=== PATIENT | male | born 1995 | race Caucasian/White ===

== ENCOUNTER 2016-10-27 09:21 | Emergency (ER) | payer SELFPAY ==
[2016-10-27 09:33] VITALS: BP 140/76
--- NOTE | 2016-10-27 10:45 | UC ---
Complaint Male HPI - HPI Summary HPI Summary: CONCERN ABOUT STDS PT. WAS TREATED FOR GERRY WITH ZITHROMAX ONE WEEK A GO , HIS SX IMPROVED , NO HAVING SX OF BURNING ON URINATION , URINARY DISCHARGE, NO FEVER, NO CHILLS, NO BACK PAIN - History of Current Complaint Chief Complaint: UCSTDScreening Stated Complaint: PERSONAL Time Seen by Provider: 10/27/16 10:08 Hx Obtained From: Patient Onset/Duration: Gradual Onset, Lasting Days - 2, Still Present Timing: Constant, Lasting Days - 2 Severity Initially: Moderate Severity Currently: Moderate Pain Intensity: 0 Pain Scale Used: 0-10 Numeric Location: Penis Character: Burning Aggravating Factor(s): Voiding Associated Signs And Symptoms: Positive: Dysuria, Penile Discharge. Negative: Diaphoresis, Back Pain, Fever, Hematuria, Constipation, Blood in Stool, Rectal Pain, Appetite, Nausea, Penile Swelling - Allergies/Home Medications Allergies/Adverse Reactions: Allergies Allergy/AdvReac Type Severity Reaction Status Date / Time No Known Allergies Allergy Verified 10/27/16 09:33 PMH/Surg Hx/FS Hx/Imm Hx Previously Healthy: Yes - Surgical History Surgical History: Yes Surgery Procedure, Year, and Place: HERNIA--2017 - Family History Known Family History: Positive: None - FATHER TESTICULAR CANCER, Other - testicular cancer - Social History Alcohol Use: Rare Substance Use Type: None Smoking Status (MU): Former Smoker Type: Smokeless Tobacco Amount Used/How Often: 3 CANS PER WK Length of Time of Smoking/Using Tobacco: 8 YRS When Did the Patient Quit Smoking/Using Tobacco: QUIT SMOKING 3-4 YRS AGO, CONT USE OF SMOKELESS TOBACCO Review of Systems Constitutional: Negative Skin: Negative Eyes: Negative ENT: Negative Respiratory: Negative Cardiovascular: Negative Gastrointestinal: Negative Genitourinary: Dysuria Motor: Negative Neurovascular: Negative Musculoskeletal: Negative Neurological: Negative Psychological: Negative All Other Systems Reviewed And Are Negative: Yes Physical Exam Triage Information Reviewed: Yes Appearance: Well-Appearing, No Pain Distress, Well-Nourished Vital Signs: Initial Vital Signs Temp 98.1 F 10/27/16 09:28 Pulse 56 10/27/16 09:28 Resp 18 10/27/16 09:28 BP 140/76 10/27/16 09:28 Pulse Ox 99 10/27/16 09:28 Vital Signs Reviewed: Yes Eyes: Positive: Conjunctiva Clear ENT: Positive: Normal ENT inspection, Hearing grossly normal, Pharynx normal Dental Exam: Normal Neck exam: Normal Neck: Positive: Supple Respiratory: Positive: Chest non-tender, Lungs clear, Normal breath sounds Cardiovascular Exam: Normal Cardiovascular: Positive: RRR, No Murmur, Pulses Normal Abdominal Exam: Normal Skin Exam: Normal Complaint Male Course/Dx - Differential Dx/Diagnosis Provider Diagnoses: DYSURIA. CONCERN ABOUT STDS Discharge - Discharge Plan Condition: Stable Disposition: HOME Patient Education Materials: Sexually Transmitted Diseases (ED) Referrals: No Primary Care Phys,NOPCP [Primary Care Provider] - 5 Days Additional Instructions: WILL CHECK FOR GC AND CHYLY CALL THE OFFICE IN 2 DAY FOR THE TEST RESULTS WILL START ABX TREATMENT IF ANY POSITIVE RESULTS
--- NOTE | 2016-10-28 15:01 | UC ---
Progress - Progress Note Progress Note: Patient here 3 weeks ago, tested positive for GC/Chlamydia and treated appropriately. Yesterday, returned with symptoms. Tested again through urine. Obtained results today and positive for Chlamydia. Called patient and informed of rx sent to pharmacy. 1000mg Azithromycin sent. Patient made aware and OK.
== END 2016-10-27 10:32 | disposition home or self-care (01) ==
LOC: UCCORT 09:21
DX: R30.0 Dysuria (principal); R36.9 Urethral discharge, unspecified; Z11.3 Encounter for screening for infections with a predominantly sexual mode of transmission; F17.220 Nicotine dependence, chewing tobacco, uncomplicated
CPT/HCPCS: 87491; 87591; 99211; G0463

== ENCOUNTER 2016-11-29 14:03 | Emergency (ER) | payer SELFPAY ==
[2016-11-29 14:31] VITALS: BP 152/81
--- NOTE | 2016-11-29 15:35 | UC ---
Skin Complaint HPI - History of Current Complaint Chief Complaint: UCSkin Time Seen by Provider: 11/29/16 15:25 Stated Complaint: SKIN COMPLAINT Hx Obtained From: Patient Onset/Duration: Sudden Onset - this morning. Burning rash on legs and arms and hands., Worse Since - onset. Skin Exposure Onset/Duration: Days Ago - yesterday ? Hogs weed. Timing: Constant Onset Severity: Mild Current Severity: Moderate Location: Generalized Character: Pain, Redness, Painful Aggravating: Touch Alleviating: Nothing Associated Signs & Symptoms: Positive: Rash. Negative: Nausea, Vomiting, Fever , Chills, Throat Tightening Related History: Possible Reaction to: Environmental Exposure - Hogs weed - Allergy/Home Medications Allergies/Adverse Reactions: Allergies Allergy/AdvReac Type Severity Reaction Status Date / Time No Known Allergies Allergy Verified 11/29/16 14:31 Review of Systems Skin: Rash Neurological: Headache All Other Systems Reviewed And Are Negative: Yes PMH/Surg Hx/FS Hx/Imm Hx Previously Healthy: Yes Other History Of: Negative For: HIV - Surgical History Surgical History: Yes Surgery Procedure, Year, and Place: HERNIA--2017 - Family History Known Family History: Positive: Cardiac Disease, Hypertension, Diabetes, Other - testicular cancer - Social History Occupation: Employed Full-time Lives: With Family Alcohol Use: None Substance Use Type: None Smoking Status (MU): Former Smoker Type: Smokeless Tobacco Amount Used/How Often: 3 CANS PER WK Length of Time of Smoking/Using Tobacco: 8 YRS When Did the Patient Quit Smoking/Using Tobacco: QUIT SMOKING 3-4 YRS AGO, CONT USE OF SMOKELESS TOBACCO Cessation Counseling: Patient Advised to Stop - chewing tobacco. Physical Exam Triage Information Reviewed: Yes Appearance: Well-Appearing, No Pain Distress, Well-Nourished Vital Signs: Initial Vital Signs Temp 97.0 F 11/29/16 14:26 Pulse 66 11/29/16 14:26 Resp 18 11/29/16 14:26 BP 152/81 11/29/16 14:26 Pulse Ox 100 11/29/16 14:26 Vital Signs Reviewed: Yes Eyes: Positive: Conjunctiva Clear ENT: Positive: Pharynx normal, TMs normal Neck exam: Normal Respiratory Exam: Normal Cardiovascular Exam: Normal Musculoskeletal Exam: Normal Neurological Exam: Normal Psychological Exam: Normal Skin: Positive: rashes - Blistering rash on the hands forearms and lower legs. Course/Dx - Differential Diagnoses - Skin Complaint Differential Diagnoses: Contact Dermatitis, Poison [place], Poison [place] - Diagnoses Provider Diagnoses: Contact dermatitis due to plants. Discharge - Discharge Plan Condition: Stable Disposition: HOME Prescriptions: predniSONE TAB* [Deltasone TAB*] 20 mg PO DAILY #18 tab Patient Education Materials: Contact Dermatitis (ED), Prednisone (By mouth) Referrals: No Primary Care Phys,NOPCP [Primary Care Provider] - 2 Weeks (You need a doctor to follow up on your blood pressure.)
[2016-11-29] MEDS ORDERED: methylPREDNISolone 125 MG* 2 ML VIAL IM ONE (15:38)
== END 2016-11-29 16:11 | disposition home or self-care (01) ==
LOC: UCCORT 14:03
DX: L25.5 Unspecified contact dermatitis due to plants, except food (principal); F17.220 Nicotine dependence, chewing tobacco, uncomplicated
CPT/HCPCS: 96372; 99211; G0463; J2930

== ENCOUNTER 2018-05-12 14:05 | Emergency (ER) | payer BC ==
[2018-05-12 14:46] VITALS: BP 131/70
--- NOTE | 2018-05-12 15:15 | UC ---
Neck Pain HPI - HPI Summary HPI Summary: 2 weeks of left neck pain, at insertion of paraspinals into occiput. Has used acetaminophen only with some relief. Just travelled from [place], where he has been living in the [facility] for months. No radiation of pain, is getting some diffuse headache, and has no radicular symptoms. Also concerned about lesion on his penis x several days, which he has scrubbed in the shower and swabbed with alcohol. No pain, discharge, blister, or itch. Last sexually active about 8 months ago. No hx of herpes or STI's, No urinary sx. returning to [place] in 2 weeks. - History of Current Complaint Chief Complaint: UCHeadache Stated Complaint: NECK PAIN Time Seen by Provider: 05/12/18 15:05 Hx Obtained From: Patient Onset/Duration: Gradual Onset, Lasting Weeks Pain Intensity: 2 Character: Aching Aggravating Factors: Movement Alleviating Factors: OTC Meds Associated Signs & Symptoms: Positive: Headache - Risk Factors Meningitis Risk Factors: Negative - Allergies/Home Medications Allergies/Adverse Reactions: Allergies Allergy/AdvReac Type Severity Reaction Status Date / Time No Known Allergies Allergy Verified 05/12/18 14:39 Home Medications: Home Medications Otc Pain Med 1 tab PO ONCE PRN 05/12/18 [History Confirmed 05/12/18] PMH/Surg Hx/FS Hx/Imm Hx Previously Healthy: Yes Other History Of: Negative For: HIV - Surgical History Surgical History: Yes Surgery Procedure, Year, and Place: Umbilical HERNIA--2017 - Family History Known Family History: Positive: Cardiac Disease, Hypertension, Diabetes, Other - testicular cancer, Non-Contributory - Social History Occupation: Unemployed Lives: With Family Alcohol Use: None Substance Use Type: None Smoking Status (MU): Former Smoker Type: Smokeless Tobacco Amount Used/How Often: 3 CANS PER WK Length of Time of Smoking/Using Tobacco: 8 YRS When Did the Patient Quit Smoking/Using Tobacco: QUIT SMOKING 3-4 YRS AGO, CONT USE OF SMOKELESS TOBACCO Review Of Systems Constitutional: Positive: Negative Skin: Positive: Other - lesion on penis Eyes: Positive: Negative ENT: Positive: Negative Respiratory: Positive: Negative Cardiovascular: Positive: Negative Gastrointestinal: Positive: Negative Genitourinary: Positive: Negative Musculoskeletal: Positive: Myalgia Neurological: Positive: Headache Psychological: Positive: Negative All Other Systems Reviewed And Are Negative: No Physical Exam Triage Information Reviewed: Yes Appearance: Well-Appearing, Pain Distress - mild, Obese Vital Signs: Initial Vital Signs Temp 98.1 F 05/12/18 14:43 Pulse 79 05/12/18 14:43 Resp 18 05/12/18 14:43 BP 131/70 05/12/18 14:43 Pulse Ox 98 05/12/18 14:43 Eye Exam: Other - LYN Eyes: Positive: Conjunctiva Clear ENT: Positive: Pharynx normal Dental Exam: Normal Neck: Positive: Supple, Tenderness @ - left paraspinal insertion into occipital ridge. Full ROM with pain with rotation to the left. Respiratory: Positive: Lungs clear, Normal breath sounds Cardiovascular: Positive: RRR, No Murmur Male Genital Exam: Positive: Normal Genitalia, Other - at base of head of penis , has 3 mm area of erythema, no pustule or blister, mildly indurated. No other lesions noted.. Negative: Scrotum Tenderness (R), Scrotum Tenderness (L), Urethral Discharge Musculoskeletal: Positive: Strength Intact, ROM Intact Neurological: Positive: Alert, Muscle Tone Normal Psychological Exam: Normal Skin Exam: Normal Neck Pain Course/Dx - Course Course Of Treatment: ibuprofen and stretching to neck pain. PT deferred due to travel. Monitor lesion on penis--non-diagnositic appearance with minimal symptoms. - Differential Dx/Diagnosis Differential Dx/HQI/PQRI: Sprain, Strain Provider Diagnosis: Cervical muscle strain, Penile papules Discharge - Sign-Out/Discharge Documenting (check all that apply): Patient Departure All imaging exams completed and their final reports reviewed: No Studies - Discharge Plan Condition: Stable Disposition: HOME Patient Education Materials: Cervical Strain (ED) Referrals: No Primary Care Phys,NOPCP [Primary Care Provider] - Additional Instructions: use ibuprofen 800mg three times daily for pain relief, along with warm moist heat to the neck for relief of pain. Work on upper body strengthening and posture improvement. As discussed, monitor the rash on the penis, which does not look like a herpetic infection, sexually transmitted disease or yeast. Use routine cleansing and avoid alchol or peroxide which are too harsh to use on the penis. - Billing Disposition and Condition Condition: STABLE Disposition: Home
== END 2018-05-12 15:40 | disposition home or self-care (01) ==
LOC: UCCORT 14:05
DX: S16.1XXA Strain of muscle, fascia and tendon at neck level, initial encounter (principal); X58.XXXA Exposure to other specified factors, initial encounter; Y92.9 Unspecified place or not applicable; R23.8 Other skin changes; Z87.891 Personal history of nicotine dependence
CPT/HCPCS: 99211; G0463